=== PATIENT | male | born 1965 | race Caucasian/White ===

== ENCOUNTER 2019-05-27 05:18 | Emergency (ER) | payer OTHER ==
[~2019-05-27] VITALS: Ht 170.2 cm; Wt 93.0 kg
[2019-05-27] MEDS ORDERED: MECLIZINE 25MG TABLET PO ONE (06:45)
[2019-05-27 06:54] LABS: BASOPHILS % 0.6 % (0.0-2.0); EOSINOPHILS % 1.5 % (0.0-5.0); HEMATOCRIT. 33.9 % (42.0-52.0); HEMOGLOBIN. 11.1 g/dL (14.0-18.0); LYMPHOCYTES % 15.6 % (20.0-50.0); MEAN CORPUSCULAR HEMOGLOBIN 31.8 pg (28.0-32.0); MEAN PLATELET VOLUME 8.1 fl (7.4-10.4); MONOCYTES % 5.8 % (2.0-8.0); NEUTROPHILS % 76.5 % (40.0-76.0); PLATELET 308 x1000/uL (130-400); RED BLOOD CELL COUNT 3.49 mill/uL (4.7-6.1); RED CELL DISTRIBUTION WIDTH 14.3 % (11.6-14.6)
[2019-05-27 06:56] LABS: CHLORIDE 102 mEq/L (98-107)
[2019-05-27 11:48] VITALS: BP 154/72
== END 2019-05-27 12:36 | disposition home or self-care (01) ==
LOC: ER 05:18
DX: I12.0 Hypertensive chronic kidney disease with stage 5 chronic kidney disease or end stage renal disease (principal); E11.22 Type 2 diabetes mellitus with diabetic chronic kidney disease; N18.6 End stage renal disease; Z99.2 Dependence on renal dialysis
CPT/HCPCS: 36415; 70496; 70498; 71045; 80053; 84484; 85025; 93005; 99285; J8597

== ENCOUNTER 2019-06-01 17:44 | Inpatient (IN) | payer OTHER ==
[~2019-06-01] VITALS: Ht 167.6 cm; Wt 93.0 kg
[2019-06-01 20:31] LABS: BASOPHILS % 1.1 % (0.0-2.0); EOSINOPHILS % 4.1 % (0.0-5.0); HEMATOCRIT. 31.5 % (42.0-52.0); HEMOGLOBIN. 10.6 g/dL (14.0-18.0); LYMPHOCYTES % 19.9 % (20.0-50.0); MEAN CORPUSCULAR HEMOGLOBIN 32.3 pg (28.0-32.0); MEAN CORPUSCULAR VOLUME 96.4 fL (80.0-94.0); MEAN PLATELET VOLUME 7.6 fl (7.4-10.4); MONOCYTES % 6.1 % (2.0-8.0); NEUTROPHILS % 68.8 % (40.0-76.0); PLATELET 281 x1000/uL (130-400); RED BLOOD CELL COUNT 3.27 mill/uL (4.7-6.1); RED CELL DISTRIBUTION WIDTH 13.8 % (11.6-14.6)
[2019-06-01 20:38] LABS: CHLORIDE 100 mEq/L (98-107)
[2019-06-01 20:42] LABS: PARTIAL THROMBOPLASTIN TIME 25.5 sec (23.4-31.0); PROTHROMBIN TIME 10.6 sec (9.6-11.0)
[2019-06-01] MEDS ORDERED: ASPIRIN 325MG EC TABLET PO ONE (21:15)
[2019-06-01] MEDS ORDERED: SODIUM BICARBONATE 8.4% 1 MEQ/ML 50ML SYR IV ONE (21:15)
[2019-06-01] MEDS ORDERED: ALBUTEROL (0.083%) 2.5MG/3ML NEB HHN ONE (21:15)
[2019-06-01] MEDS ORDERED: INSULIN REGULAR (HUMULIN R) 300UNITS/3ML IV ONE (21:15)
[2019-06-01] MEDS ORDERED: SODIUM POLYSTYRENE SULFONATE 15 G/60 ML BOT PO ONE (21:15)
[2019-06-01] MEDS ORDERED: DEXTROSE 50% WATER 50ML SYRINGE IV ONE (21:15)
[2019-06-01] MEDS ORDERED: HYDROCODONE/ACETAMINOPHEN 10/325MG TABLET PO PRN (22:45)
[2019-06-01] MEDS ORDERED: DOCUSATE SODIUM 100MG CAPSULE PO PRN (22:45)
[2019-06-01] MEDS ORDERED: ONDANSETRON HCL 4MG/2ML INJ IV PRN (22:45)
[2019-06-01] MEDS ORDERED: MAGNESIUM/ALUMINUM HYDROXIDE/SIMETHICONE 30ML UDC PO PRN (22:45)
[2019-06-01] MEDS ORDERED: LORAZEPAM 2MG/ML CPJ IV PRN (22:45)
[2019-06-01] MEDS ORDERED: IPRATROPIUM/ALBUTEROL 0.5-3(2.5)MG/3ML NEB HHN PRN (22:45)
[2019-06-01] MEDS ORDERED: GUAIFENESIN 200MG/10ML SUGAR FREE UDC PO PRN (22:45)
[2019-06-01] MEDS ORDERED: ACETAMINOPHEN 325MG TABLET PO PRN (22:45)
[2019-06-01] MEDS ORDERED: DEXTROSE 50% WATER 50ML SYRINGE IV PRN (22:45)
[2019-06-01] MEDS ORDERED: HYDRALAZINE 20MG/ML VIAL IV PRN (22:45)
[2019-06-01] MEDS ORDERED: NA PHOS,M-B/NA PHOS,DI-BA ENEMA 118ML PR PRN (22:45)
[2019-06-01] MEDS ORDERED: MORPHINE SULFATE 2 MG/ML CPJ (NOT FOR IM USE) IV PRN (22:45)
[2019-06-02] VITALS (7 sets, daily range): BP systolic 17–176; BP diastolic 67–80
[2019-06-02] MEDS: DIPHENHYDRAMINE 50MG/ML VIAL IV PRN ×2 (01:51→23:02)
[2019-06-02] MEDS ORDERED: FURO80TA3 PO (03:52)
[2019-06-02] MEDS ORDERED: ASPI-1079 PO (03:52)
[2019-06-02] MEDS ORDERED: SUCR500T MT (03:52)
[2019-06-02] MEDS ORDERED: CALC667T6 MT (03:52)
[2019-06-02] MEDS ORDERED: CLON0.3T PO (03:52)
[2019-06-02] MEDS ORDERED: GABA-531 PO (03:52)
[2019-06-02] MEDS ORDERED: TRAZ-251 PO (03:52)
[2019-06-02] MEDS ORDERED: HYDR100T26 PO (03:52)
[2019-06-02] MEDS ORDERED: LEVO50TA8 PO (03:52)
[2019-06-02] MEDS ORDERED: LISI40TA4 PO (03:52)
[2019-06-02] MEDS: CLONIDINE 0.1MG TABLET PO PRN ×2 (05:25→12:47)
[2019-06-02] MEDS: SODIUM CHLORIDE 0.9% INJ 3ML FLUSH IVF SCH ×3 (06:27→23:03)
[2019-06-02] MEDS: INSULIN LISPRO 100 UNITS/ML SUBCUT SCH ×4 (06:27→22:56)
[2019-06-02] MEDS: BLOOD SUGAR DIAGNOSTIC STRIP TEST SCH ×4 (06:27→21:00)
[2019-06-02 07:29] LABS: BASOPHILS % 0.4 % (0.0-2.0); EOSINOPHILS % 2.3 % (0.0-5.0); HEMATOCRIT. 29.1 % (42.0-52.0); HEMOGLOBIN. 9.6 g/dL (14.0-18.0); LYMPHOCYTES % 12.2 % (20.0-50.0); MEAN PLATELET VOLUME 7.8 fl (7.4-10.4); MONOCYTES % 6.7 % (2.0-8.0); NEUTROPHILS % 78.4 % (40.0-76.0); PLATELET 262 x1000/uL (130-400); RED CELL DISTRIBUTION WIDTH 13.7 % (11.6-14.6)
[2019-06-02 07:37] LABS: CHLORIDE 100 mEq/L (98-107)
[2019-06-02 07:44] LABS: LDL CHOLESTEROL 133 mg/dL (5-100)
[2019-06-02 07:45] LABS: CREATINE KINASE 222 IU/L (39-308); CREATINE KINASE MB FRACTION 6.2 ng/mL (0.5-3.6); HDL CHOLESTEROL 28 mg/dL (40-59); T4 FREE 0.99 ng/dL (0.76-1.46)
[2019-06-02] MEDS: ASPIRIN 81MG EC TABLET PO SCH (08:47)
[2019-06-02] MEDS: ENOXAPARIN 30MG/0.3ML SYR SUBCUT SCH (08:48)
[2019-06-02] MEDS: CITRIC ACID/SODIUM CITRATE SOLN 30ML UDC PO SCH ×2 (12:46→16:51)
[2019-06-02 13:15] LABS: *AMPHETAMINES SCREEN URINE NEGATIVE (NEGATIVE); *BARBITURATES SCREEN URINE NEGATIVE (NEGATIVE); *BENZODIAZEPINES SCREEN URINE NEGATIVE (NEGATIVE); *COCAINE SCREEN URINE NEGATIVE (NEGATIVE); METHADONE URINE SCREEN NEGATIVE (NEGATIVE)
[2019-06-02 13:16] LABS: CANNABINOID URINE SCREEN NEGATIVE (NEGATIVE); OPIATES URINE SCREEN NEGATIVE (NEGATIVE); PHENCYCLIDINE URINE SCREEN NEGATIVE (NEGATIVE)
[2019-06-02 17:09] LABS: CREATINE KINASE MB FRACTION 5.4 ng/mL (0.5-3.6)
[2019-06-03] VITALS: BP 145/65
[2019-06-03 04:00] VITALS: BP 136/76
[2019-06-03 06:40] LABS: BASOPHILS % 0.7 % (0.0-2.0); EOSINOPHILS % 3.8 % (0.0-5.0); HEMOGLOBIN. 10.1 g/dL (14.0-18.0); LYMPHOCYTES % 24.2 % (20.0-50.0); MEAN CORPUSCULAR HEMOGLOBIN 32.7 pg (28.0-32.0); MEAN CORPUSCULAR VOLUME 97.4 fL (80.0-94.0); MEAN PLATELET VOLUME 7.5 fl (7.4-10.4); MONOCYTES % 8.5 % (2.0-8.0); NEUTROPHILS % 62.8 % (40.0-76.0); PLATELET 260 x1000/uL (130-400); RED BLOOD CELL COUNT 3.08 mill/uL (4.7-6.1); RED CELL DISTRIBUTION WIDTH 13.9 % (11.6-14.6)
[2019-06-03] MEDS: BLOOD SUGAR DIAGNOSTIC STRIP TEST SCH ×3 (06:45→17:35)
[2019-06-03 08:00] VITALS: BP 136/81
[2019-06-03] MEDS: INSULIN LISPRO 100 UNITS/ML SUBCUT SCH ×3 (08:01→17:35)
[2019-06-03] MEDS: SODIUM CHLORIDE 0.9% INJ 3ML FLUSH IVF SCH ×2 (08:05→14:15)
[2019-06-03] MEDS: ENOXAPARIN 30MG/0.3ML SYR SUBCUT SCH (09:07)
[2019-06-03] MEDS: CITRIC ACID/SODIUM CITRATE SOLN 30ML UDC PO SCH ×3 (09:07→17:35)
[2019-06-03] MEDS: ASPIRIN 81MG EC TABLET PO SCH (09:07)
[2019-06-03] MEDS ORDERED: CLOPIDOGREL 75MG TABLET PO SCH (09:30)
[2019-06-03 12:00] VITALS: BP 175/87
[2019-06-03] MEDS: CLONIDINE 0.1MG TABLET PO PRN (15:56)
[2019-06-03 16:00] VITALS: BP 176/94
== END 2019-06-03 19:06 | disposition home health service (06) | DRG 45 ==
LOC: ER 17:44 → 5WST 21:56 → ENRESERV 06-02 00:09
PROVIDERS: ADMIT Internal Medicine; ATTEND Internal Medicine
PROC: 3E1M39Z Irrigation of Peritoneal Cavity using Dialysate, Percutaneous Approach (ICD-10-PCS; principal; 2019-06-02)
DX: I63.531 Cerebral infarction due to unspecified occlusion or stenosis of right posterior cerebral artery (principal); E11.22 Type 2 diabetes mellitus with diabetic chronic kidney disease; E87.2 Acidosis; I12.0 Hypertensive chronic kidney disease with stage 5 chronic kidney disease or end stage renal disease; E87.5 Hyperkalemia; N18.6 End stage renal disease; E78.5 Hyperlipidemia, unspecified; D64.9 Anemia, unspecified; R29.810 Facial weakness; Z79.82 Long term (current) use of aspirin; Z99.2 Dependence on renal dialysis; Z79.899 Other long term (current) drug therapy
CPT/HCPCS: 36415; 70551; 71045; 80048; 80053; 80061; 80305; 82550; 82553; 82962; 83036; 83880; 84439; 84443; 84484; 85025; 85379; 93005; 93306; 93880; 93970; 97162; 99285; J1200; J1650; J1815; J2060; J3490

== ENCOUNTER 2019-06-03 20:24 | Emergency (ER) | payer OTHER ==
[~2019-06-03] VITALS: Ht 172.7 cm; Wt 92.9 kg
[~2019-06-03 20:24] MED LIST: ASPI-1079 PO; CALC667T6 MT; CLON0.3T PO; FURO80TA3 PO; GABA-531 PO; HYDR100T26 PO; LEVO50TA8 PO; LISI40TA4 PO; SUCR500T MT; TRAZ-251 PO
[2019-06-03] MEDS ORDERED: CLONIDINE 0.1MG TABLET PO ONE (22:45)
[2019-06-04 00:10] VITALS: BP 133/77
== END 2019-06-04 00:12 | disposition home or self-care (01) ==
LOC: ER 20:37
DX: G45.9 Transient cerebral ischemic attack, unspecified (principal); I16.0 Hypertensive urgency; Z86.73 Personal history of transient ischemic attack (TIA), and cerebral infarction without residual deficits; Z79.899 Other long term (current) drug therapy; I11.0 Hypertensive heart disease with heart failure; I50.9 Heart failure, unspecified
CPT/HCPCS: 82962; 99283

== ENCOUNTER 2019-06-26 17:53 | Inpatient (IN) | payer OTHER ==
[~2019-06-26] VITALS: Ht 177.8 cm; Wt 88.5 kg
[2019-06-26 19:59] LABS: MEAN CORPUSCULAR HEMOGLOBIN 32.5 pg (28.0-32.0); MEAN CORPUSCULAR VOLUME 95.4 fL (80.0-94.0); PLATELET 218 x1000/uL (130-400); RED BLOOD CELL COUNT 2.14 mill/uL (4.7-6.1); RED CELL DISTRIBUTION WIDTH 13.2 % (11.6-14.6)
[2019-06-26 20:06] LABS: CHLORIDE 94 mEq/L (98-107)
[2019-06-26 20:08] LABS: PROTHROMBIN TIME 10.7 sec (9.6-11.0)
[2019-06-26 20:11] LABS: ETHANOL BLOOD < 10 mg/dL
[2019-06-26 20:13] LABS: LDL CHOLESTEROL 47 mg/dL (5-100)
[2019-06-26 20:26] LABS: HEMATOCRIT. 20.4 % (42.0-52.0)
[2019-06-26 20:58] LABS: CLARITY URINE CLEAR (CLEAR); COLOR URINE YELLOW (YELLOW); KETONES URINE NEGATIVE (NEGATIVE); LEUKOCYTE ESTERASE URINE NEGATIVE (NEGATIVE); NITRITE URINE NEGATIVE (NEGATIVE); OCCULT BLOOD URINE TRACE (NEGATIVE); PH URINE 6.5 (4.5-8.0); PROTEIN URINE 1+ (NEGATIVE); SPECIFIC GRAVITY URINE 1.011 (1.005-1.030); UROBILINOGEN URINE 0.2 E.U./dL (0.2-1.0)
[2019-06-26 21:06] LABS: *AMPHETAMINES SCREEN URINE NEGATIVE (NEGATIVE); *BARBITURATES SCREEN URINE NEGATIVE (NEGATIVE); *BENZODIAZEPINES SCREEN URINE NEGATIVE (NEGATIVE); CANNABINOID URINE SCREEN NEGATIVE (NEGATIVE); PHENCYCLIDINE URINE SCREEN NEGATIVE (NEGATIVE)
[2019-06-26 21:07] LABS: *COCAINE SCREEN URINE NEGATIVE (NEGATIVE); METHADONE URINE SCREEN NEGATIVE (NEGATIVE); OPIATES URINE SCREEN NEGATIVE (NEGATIVE)
[2019-06-26 21:35] LABS: PLATELET ESTIMATE NORMAL
[2019-06-26] MEDS ORDERED: IOHEXOL-350 100 ML BOTTLE ONE (21:57)
[2019-06-26] MEDS ORDERED: SODIUM CHLORIDE 0.9% 500 ML IV NR (22:45)
[2019-06-26 23:47] VITALS: BP 128/61
[2019-06-27] VITALS: BP 125/61
[2019-06-27] MEDS ORDERED: IPRATROPIUM/ALBUTEROL 0.5-3(2.5)MG/3ML NEB NEB PRN
[2019-06-27] MEDS ORDERED: MAGNESIUM/ALUMINUM HYDROXIDE/SIMETHICONE 30ML UDC PO PRN
[2019-06-27] MEDS ORDERED: ONDANSETRON HCL 4MG/2ML INJ IV PRN
[2019-06-27] MEDS ORDERED: ACETAMINOPHEN 325MG TABLET PO PRN
[2019-06-27] MEDS ORDERED: CLONIDINE 0.1MG TABLET PO PRN
[2019-06-27] MEDS ORDERED: GUAIFENESIN 200MG/10ML SUGAR FREE UDC PO PRN
[2019-06-27] MEDS ORDERED: LORAZEPAM 2MG/ML CPJ IV PRN
[2019-06-27] MEDS ORDERED: MORPHINE SULFATE 2 MG/ML CPJ (NOT FOR IM USE) IV PRN
[2019-06-27] MEDS ORDERED: HYDRALAZINE 20MG/ML VIAL IV PRN
[2019-06-27] MEDS ORDERED: DEXTROSE 50% WATER 50ML SYRINGE IV PRN
[2019-06-27] MEDS ORDERED: DOCUSATE SODIUM 100MG CAPSULE PO PRN
[2019-06-27] MEDS ORDERED: HYDROCODONE/ACETAMINOPHEN 10/325MG TABLET PO PRN
[2019-06-27] MEDS ORDERED: INSULIN REGULAR (HUMULIN R) UD 100 UNITS/ML SYR IV NR (00:45)
[2019-06-27] MEDS ORDERED: SODIUM BICARBONATE 8.4% 1 MEQ/ML 50ML SYR IV NR (00:45)
[2019-06-27] MEDS ORDERED: DEXTROSE 50% WATER 50ML SYRINGE IV NR (00:45)
[2019-06-27] MEDS ORDERED: SODIUM POLYSTYRENE SULFONATE 15 G/60 ML BOT PO NR (00:45)
[2019-06-27 04:00] VITALS: BP 122/74
[2019-06-27 06:05] LABS: HEMATOCRIT. 21.7 % (42.0-52.0); HEMOGLOBIN. 7.4 g/dL (14.0-18.0); MEAN CORPUSCULAR HEMOGLOBIN 32.6 pg (28.0-32.0); MEAN CORPUSCULAR VOLUME 95.4 fL (80.0-94.0); MEAN PLATELET VOLUME 7.9 fl (7.4-10.4); PLATELET 219 x1000/uL (130-400); RED BLOOD CELL COUNT 2.27 mill/uL (4.7-6.1); RED CELL DISTRIBUTION WIDTH 13.4 % (11.6-14.6)
[2019-06-27 06:28] LABS: CHLORIDE 98 mEq/L (98-107)
[2019-06-27 06:37] LABS: CREATINE KINASE MB FRACTION 10.4 ng/mL (0.5-3.6)
[2019-06-27 06:39] LABS: LDL CHOLESTEROL 53 mg/dL (5-100)
[2019-06-27 06:41] LABS: CREATINE KINASE 402 IU/L (39-308); HDL CHOLESTEROL 25 mg/dL (40-59); T4 FREE 0.95 ng/dL (0.76-1.46)
[2019-06-27] MEDS: BLOOD SUGAR DIAGNOSTIC STRIP TEST SCH ×4 (06:51→21:42)
[2019-06-27] MEDS: INSULIN LISPRO 100 UNITS/ML SUBCUT SCH ×4 (06:51→21:58)
[2019-06-27] MEDS: SODIUM CHLORIDE 0.9% INJ 3ML FLUSH IVF SCH ×2 (06:51→13:17)
[2019-06-27 08:00] VITALS: BP 132/64
[2019-06-27 11:36] LABS: PLATELET ESTIMATE NORMAL
[2019-06-27 12:00] VITALS: BP 118/56
[2019-06-27 16:00] VITALS: BP 137/68
[2019-06-27 17:09] LABS: CREATINE KINASE 379 IU/L (39-308); CREATINE KINASE MB FRACTION 9.4 ng/mL (0.5-3.6)
[2019-06-27 20:00] VITALS: BP 140/71
[2019-06-27] MEDS: DIPHENHYDRAMINE 50MG/ML VIAL IV PRN (21:56)
[2019-06-28] VITALS (7 sets, daily range): BP systolic 128–187; BP diastolic 64–87
[2019-06-28] MEDS: SODIUM CHLORIDE 0.9% INJ 3ML FLUSH IVF SCH ×4 (02:10→20:38)
[2019-06-28] MEDS: DIPHENHYDRAMINE 50MG/ML VIAL IV PRN (03:18)
[2019-06-28] MEDS: BLOOD SUGAR DIAGNOSTIC STRIP TEST SCH ×4 (06:06→20:56)
[2019-06-28] MEDS: INSULIN LISPRO 100 UNITS/ML SUBCUT SCH ×4 (07:15→20:57)
[2019-06-28 07:32] LABS: BASOPHILS % 0.9 % (0.0-2.0); EOSINOPHILS % 3.1 % (0.0-5.0); HEMATOCRIT. 21.6 % (42.0-52.0); HEMOGLOBIN. 7.3 g/dL (14.0-18.0); LYMPHOCYTES % 26.6 % (20.0-50.0); MEAN CORPUSCULAR HEMOGLOBIN 32.3 pg (28.0-32.0); MEAN CORPUSCULAR VOLUME 94.8 fL (80.0-94.0); MEAN PLATELET VOLUME 8.1 fl (7.4-10.4); MONOCYTES % 9.9 % (2.0-8.0); NEUTROPHILS % 59.5 % (40.0-76.0); PLATELET 242 x1000/uL (130-400); RED BLOOD CELL COUNT 2.28 mill/uL (4.7-6.1); RED CELL DISTRIBUTION WIDTH 13.4 % (11.6-14.6)
[2019-06-28] MEDS: CLOPIDOGREL 75MG TABLET PO SCH (13:46)
[2019-06-28] MEDS: ASPIRIN 81MG EC TABLET PO SCH (13:46)
[2019-06-28] MEDS: MECLIZINE 25MG TABLET PO PRN (14:55)
[2019-06-28] MEDS: ATORVASTATIN CALCIUM 20MG TABLET PO SCH (20:38)
[2019-06-28] MEDS: EPOETIN ALFA 10000UNITS/ML VIAL SUBCUT SCH (20:56)
[2019-06-29] VITALS (7 sets, daily range): BP systolic 144–181; BP diastolic 64–84
[2019-06-29] MEDS: BLOOD SUGAR DIAGNOSTIC STRIP TEST SCH ×4 (05:48→20:37)
[2019-06-29] MEDS: INSULIN LISPRO 100 UNITS/ML SUBCUT SCH ×4 (05:53→20:38)
[2019-06-29] MEDS: SODIUM CHLORIDE 0.9% INJ 3ML FLUSH IVF SCH ×3 (05:53→20:37)
[2019-06-29] MEDS: CLOPIDOGREL 75MG TABLET PO SCH (09:30)
[2019-06-29] MEDS: ASPIRIN 81MG EC TABLET PO SCH (09:30)
[2019-06-29] MEDS: MECLIZINE 25MG TABLET PO PRN (10:01)
[2019-06-29] MEDS: ATORVASTATIN CALCIUM 20MG TABLET PO SCH (20:37)
[2019-06-30] VITALS: BP 172/79
[2019-06-30] MEDS: DIPHENHYDRAMINE 50MG/ML VIAL IV PRN (00:29)
[2019-06-30 04:00] VITALS: BP 150/75
[2019-06-30] MEDS: BLOOD SUGAR DIAGNOSTIC STRIP TEST SCH ×4 (05:46→21:19)
[2019-06-30] MEDS: INSULIN LISPRO 100 UNITS/ML SUBCUT SCH ×4 (06:03→21:19)
[2019-06-30] MEDS: SODIUM CHLORIDE 0.9% INJ 3ML FLUSH IVF SCH ×3 (06:03→21:20)
[2019-06-30 06:51] LABS: HEMATOCRIT. 22.1 % (42.0-52.0); HEMOGLOBIN. 7.5 g/dL (14.0-18.0); LYMPHOCYTES % 23.3 % (20.0-50.0); MEAN CORPUSCULAR HEMOGLOBIN 32.8 pg (28.0-32.0); MEAN CORPUSCULAR VOLUME 96.2 fL (80.0-94.0); MEAN PLATELET VOLUME 7.7 fl (7.4-10.4); MONOCYTES % 9.5 % (2.0-8.0); NEUTROPHILS % 62.2 % (40.0-76.0); PLATELET 265 x1000/uL (130-400); RED CELL DISTRIBUTION WIDTH 13.2 % (11.6-14.6)
[2019-06-30 08:00] VITALS: BP 130/82
[2019-06-30] MEDS: ASPIRIN 81MG EC TABLET PO SCH (08:40)
[2019-06-30] MEDS: CLOPIDOGREL 75MG TABLET PO SCH (08:40)
[2019-06-30 12:00] VITALS: BP 156/78
[2019-06-30 12:02] LABS: T4 FREE 0.88 ng/dL (0.76-1.46)
[2019-06-30 16:00] VITALS: BP_SYST 107; BP_SYST 171; BP_DIAS 51; BP_DIAS 92
[2019-06-30 16:26] LABS: CREATINE KINASE 271 IU/L (39-308)
[2019-06-30 16:27] LABS: CREATINE KINASE MB FRACTION 7.1 ng/mL (0.5-3.6)
[2019-06-30 20:00] VITALS: BP 172/80
[2019-06-30] MEDS: ATORVASTATIN CALCIUM 20MG TABLET PO SCH (21:16)
[2019-06-30] MEDS: EPOETIN ALFA 10000UNITS/ML VIAL SUBCUT SCH (21:16)
[2019-06-30 23:49] LABS: CREATINE KINASE 258 IU/L (39-308)
[2019-06-30 23:50] LABS: CREATINE KINASE MB FRACTION 6.7 ng/mL (0.5-3.6)
[2019-07-01] VITALS: BP 179/87
[2019-07-01 04:00] VITALS: BP 143/86
[2019-07-01 06:34] LABS: CHLORIDE 102 mEq/L (98-107)
[2019-07-01 06:42] LABS: BASOPHILS % 0.9 % (0.0-2.0); EOSINOPHILS % 3.4 % (0.0-5.0); HEMATOCRIT. 23.7 % (42.0-52.0); HEMOGLOBIN. 8.1 g/dL (14.0-18.0); MEAN CORPUSCULAR HEMOGLOBIN 33.2 pg (28.0-32.0); MEAN CORPUSCULAR VOLUME 96.7 fL (80.0-94.0); MEAN PLATELET VOLUME 7.8 fl (7.4-10.4); MONOCYTES % 9.7 % (2.0-8.0); PLATELET 278 x1000/uL (130-400); RED BLOOD CELL COUNT 2.45 mill/uL (4.7-6.1); RED CELL DISTRIBUTION WIDTH 13.6 % (11.6-14.6)
[2019-07-01 06:49] LABS: CREATINE KINASE 225 IU/L (39-308)
[2019-07-01] MEDS: SODIUM CHLORIDE 0.9% INJ 3ML FLUSH IVF SCH ×2 (06:55→13:24)
[2019-07-01] MEDS: INSULIN LISPRO 100 UNITS/ML SUBCUT SCH ×2 (06:55→12:15)
[2019-07-01] MEDS: BLOOD SUGAR DIAGNOSTIC STRIP TEST SCH ×2 (06:55→12:27)
[2019-07-01 08:00] VITALS: BP 149/70
[2019-07-01] MEDS: CLOPIDOGREL 75MG TABLET PO SCH (08:45)
[2019-07-01] MEDS: ASPIRIN 81MG EC TABLET PO SCH (08:45)
[2019-07-01 12:00] VITALS: BP 158/83
[2019-07-01 13:10] VITALS: BP 158/83
== END 2019-07-01 15:50 | disposition home or self-care (01) | DRG 45 ==
LOC: ER 17:53 → 5WST 21:21 → EDBEDREQ 21:24 → EDBEDREQTM 21:24 → ENRESERV 22:09
PROVIDERS: ADMIT Internal Medicine; ATTEND Internal Medicine
PROC: 3E1M39Z Irrigation of Peritoneal Cavity using Dialysate, Percutaneous Approach (ICD-10-PCS; 2019-06-27)
PROC: 4A00X4Z Measurement of Central Nervous Electrical Activity, External Approach (ICD-10-PCS; principal; 2019-06-30)
DX: I63.81 Other cerebral infarction due to occlusion or stenosis of small artery (principal); I13.2 Hypertensive heart and chronic kidney disease with heart failure and with stage 5 chronic kidney disease, or end stage renal disease; E11.22 Type 2 diabetes mellitus with diabetic chronic kidney disease; N18.6 End stage renal disease; E11.65 Type 2 diabetes mellitus with hyperglycemia; E87.1 Hypo-osmolality and hyponatremia; R47.01 Aphasia; I25.10 Atherosclerotic heart disease of native coronary artery without angina pectoris; D64.9 Anemia, unspecified; I50.32 Chronic diastolic (congestive) heart failure; E87.5 Hyperkalemia; E03.9 Hypothyroidism, unspecified; E78.5 Hyperlipidemia, unspecified; Z79.02 Long term (current) use of antithrombotics/antiplatelets; Z99.2 Dependence on renal dialysis; Z79.899 Other long term (current) drug therapy; Z79.82 Long term (current) use of aspirin
CPT/HCPCS: 36415; 70496; 70544; 70551; 71045; 80048; 80053; 80061; 80305; 80320; 81003; 82550; 82553; 82962; 83036; 83721; 83880; 84439; 84443; 84484; 85025; 85379; 93005; 93306; 93880; 93970; 95816; 96374; 97110; 97116; 97162; 99285; J0885; J1200; J1815; J3490; J8597; Q9967; G0480

== ENCOUNTER 2019-10-14 16:40 | Emergency (ER) | payer MEDICAID, OTHER ==
[~2019-10-14] VITALS: Ht 162.6 cm; Wt 91.0 kg
[2019-10-14 19:00] VITALS: BP 141/64
== END 2019-10-14 19:02 | disposition home or self-care (01) ==
LOC: ER 16:46
DX: I11.0 Hypertensive heart disease with heart failure (principal); I50.9 Heart failure, unspecified; R42 Dizziness and giddiness; E11.9 Type 2 diabetes mellitus without complications; Z79.899 Other long term (current) drug therapy; Z79.82 Long term (current) use of aspirin; Z86.73 Personal history of transient ischemic attack (TIA), and cerebral infarction without residual deficits
CPT/HCPCS: 93005; 99283

== ENCOUNTER 2020-01-28 22:05 | Emergency (ER) | payer MEDICAID, OTHER ==
[~2020-01-28] VITALS: Ht 167.6 cm; Wt 91.0 kg
[2020-01-28 22:11] VITALS: BP 172/73
[2020-01-29] MEDS ORDERED: METOCLOPRAMIDE HCL 10MG/2ML VIAL IM ONE (00:30)
== END 2020-01-29 03:34 | disposition left against medical advice (07) ==
LOC: ER 22:05
DX: I13.2 Hypertensive heart and chronic kidney disease with heart failure and with stage 5 chronic kidney disease, or end stage renal disease (principal); E11.22 Type 2 diabetes mellitus with diabetic chronic kidney disease; N18.6 End stage renal disease; I50.9 Heart failure, unspecified; Z99.2 Dependence on renal dialysis; Z86.73 Personal history of transient ischemic attack (TIA), and cerebral infarction without residual deficits; Z79.899 Other long term (current) drug therapy
CPT/HCPCS: 93005; 99283; J2765

== ENCOUNTER 2020-07-19 00:24 | Emergency (ER) | payer MEDICAID ==
[~2020-07-19] VITALS: Ht 167.6 cm; Wt 87.0 kg
[~2020-07-19 00:24] MED LIST changes: -GABA-531 PO; +GABA-532 PO; +LISI40TA13 PO; -LISI40TA4 PO
[2020-07-19] MEDS ORDERED: ONDANSETRON HCL 4MG/2ML INJ IV STA (01:04)
[2020-07-19 03:36] LABS: CHLORIDE 100 mEq/L (98-107); HEMATOCRIT. 29.5 % (42.0-52.0); HEMOGLOBIN. 9.9 g/dL (14.0-18.0); MEAN CORPUSCULAR HEMOGLOBIN 31.4 pg (28.0-32.0); MEAN CORPUSCULAR VOLUME 93.7 fL (80.0-94.0); MEAN PLATELET VOLUME 7.5 fl (7.4-10.4); PLATELET 367 x1000/uL (130-400); RED BLOOD CELL COUNT 3.14 mill/uL (4.7-6.1); RED CELL DISTRIBUTION WIDTH 14.8 % (11.6-14.6)
[2020-07-19 04:31] LABS: PLATELET ESTIMATE NORMAL
[2020-07-19] MEDS ORDERED: ONDA4TAB5 MT (05:57)
[2020-07-19 06:45] VITALS: BP 152/78
== END 2020-07-19 06:49 | disposition home or self-care (01) ==
LOC: ER 00:24
DX: I12.0 Hypertensive chronic kidney disease with stage 5 chronic kidney disease or end stage renal disease (principal); E11.22 Type 2 diabetes mellitus with diabetic chronic kidney disease; N18.6 End stage renal disease; Z99.2 Dependence on renal dialysis; Z79.899 Other long term (current) drug therapy
CPT/HCPCS: 36415; 71045; 80053; 83605; 83690; 85025; 93005; 99285; J2405

== ENCOUNTER 2023-12-23 05:01 | Emergency (ER) | payer MEDICARE, MEDICAID ==
[~2023-12-23] VITALS: Ht 172.7 cm; Wt 83.0 kg
[~2023-12-23 05:01] MED LIST changes: +GABA-1180 PO; -GABA-532 PO; +HYDR100T11 PO; -HYDR100T26 PO; +ONDA4TAB5 MT
[2023-12-23 05:04] VITALS: O2SAT 97
[2023-12-23 06:30] VITALS: BP 164/84; PULSE 80; RESP 18; TEMP 37.05852; O2SAT 97
== END 2023-12-23 07:24 | disposition home or self-care (01) ==
LOC: ER 05:01
DX: I12.0 Hypertensive chronic kidney disease with stage 5 chronic kidney disease or end stage renal disease (principal); E11.22 Type 2 diabetes mellitus with diabetic chronic kidney disease; N18.6 End stage renal disease; Z88.8 Allergy status to other drugs, medicaments and biological substances; Z79.899 Other long term (current) drug therapy; Z79.890 Hormone replacement therapy; Z86.73 Personal history of transient ischemic attack (TIA), and cerebral infarction without residual deficits; Z79.82 Long term (current) use of aspirin
CPT/HCPCS: 99283

== ENCOUNTER 2024-07-22 13:44 | Emergency (ER) | payer BC, MEDICAID ==
[~2024-07-22] VITALS: Ht 175.3 cm; Wt 91.0 kg
[~2024-07-22 13:44] MED LIST changes: +ATOR-2 PO; +LATA2.5D14 EACHEYE; +NIFE90TA69 PO; +OLME40TA18 PO; +TIMO15DR12 EACHEYE
[2024-07-22 13:47] VITALS: O2SAT 97
[2024-07-22] MEDS ORDERED: LIDOCAINE 5% PATCH TOP SCH ×2 (14:00→14:30)
[2024-07-22 14:01] VITALS: TEMP 36.9
[2024-07-22] MEDS: ACETAMINOPHEN 325MG TABLET PO ONE (14:46)
[2024-07-22 19:02] VITALS: BP 180/91; PULSE 73; RESP 19; O2SAT 95
== END 2024-07-22 18:55 | disposition home or self-care (01) ==
LOC: ER 13:44
DX: R07.81 Pleurodynia (principal); E11.9 Type 2 diabetes mellitus without complications; I10 Essential (primary) hypertension; Z88.8 Allergy status to other drugs, medicaments and biological substances; Z79.899 Other long term (current) drug therapy; Z79.82 Long term (current) use of aspirin; Z99.2 Dependence on renal dialysis; W01.0XXA Fall on same level from slipping, tripping and stumbling without subsequent striking against object, initial encounter; Y93.89 Activity, other specified; Y92.89 Other specified places as the place of occurrence of the external cause; Y99.8 Other external cause status
CPT/HCPCS: 71045; 99285; A4606